=== PATIENT | male | born 1960 | race Caucasian/White ===

== ENCOUNTER 2016-12-07 10:05 | Observation (INO) | payer SELFPAY ==
[~2016-12-07] VITALS: Ht 195.6 cm; Wt 148.5 kg
[2016-12-07 11:12] LABS: MCH 17.4 PG (29.0-34.0); MCHC 27.3 G/DL (30.0-36.0); MCV 63.8 FL (86-99); MEAN PLAT.VOLUME 8.7 uM^3 (9.0-12.4); PLATELET COUNT 382 K/uL (156-360); RBC DIS.WIDTH-CV 18.9 % (11.8-14.6); RBC DIS.WIDTH-SD 42.7 % (39-53); WHITE BLOOD COUNT 5.7 K/uL (4.1-10.2)
[2016-12-07 11:18] LABS: CHLORIDE 111 mEq/L (99-109); POTASSIUM 4.2 mEq/L (3.7-5.4); SODIUM 141 mEq/L (136-147)
[2016-12-07 11:19] LABS: GLUCOSE 86 mg/dL (70-99)
[2016-12-07 11:21] LABS: ANION GAP 5 MEQ/L (2-14)
[2016-12-07 11:23] LABS: GFR ESTIMATE (CALCULATED) > 59 mL/min/
[2016-12-07 11:24] LABS: UREA NITROGEN (BUN) 14 mg/dL (9-23)
[2016-12-07 11:26] LABS: TROP-I INTERPRETATION NEGATIVE; TROPONIN-I < 0.01 ng/mL (0.0-0.30)
[2016-12-07] MEDS ORDERED: AMLODIPINE BESY10 MG PO (12:43)
[2016-12-07] MEDS ORDERED: HYDROCODON-ACE1 EA11 PO (12:44)
[2016-12-07] MEDS ORDERED: TRAMADOL HCL50 MG PO (12:44)
[2016-12-07] MEDS ORDERED: CYCLOBENZAPRINE10 MG PO (12:45)
[2016-12-07] MEDS ORDERED: ASPIRIN EC325 MG PO (12:45)
[2016-12-07] MEDS ORDERED: [UNRECOGNIZED DRUG - OTHER] PO (12:47)
[2016-12-07] MEDS ORDERED: TYLENOL PM1 CAPLET PO (12:50)
[2016-12-07 14:28] LABS: IRON 18 MCG/DL (35-150)
[2016-12-07 14:29] VITALS: BP 130/72
[2016-12-07 18:12] LABS: TROP-I INTERPRETATION NEGATIVE; TROPONIN-I < 0.01 ng/mL (0.0-0.30)
[2016-12-07 19:30] VITALS: BP 124/70
[2016-12-07 20:23] VITALS: BP 128/84
[2016-12-07 20:40] VITALS: BP 146/86
[2016-12-07 21:40] VITALS: BP 150/77
[2016-12-07 23:08] VITALS: BP 146/81
[2016-12-08 01:03] LABS: TROP-I INTERPRETATION NEGATIVE; TROPONIN-I < 0.01 ng/mL (0.0-0.30)
[2016-12-08 04:15] VITALS: BP 122/74
[2016-12-08 07:21] VITALS: BP 141/83
[2016-12-08] MEDS ORDERED: FERROUS SULFAT325 MG PO (09:38)
[2016-12-08] MEDS ORDERED: CYANOCOBAL1000 MCG/2 IM (09:44)
== END 2016-12-08 10:16 | disposition home or self-care (01) ==
LOC: EME 10:05 → 5WEST 12:34 → EDOF 12:34 → 5WEST 14:08
PROVIDERS: Emergency Medicine; Hospitalist
DX: R07.9 Chest pain, unspecified (principal); D50.9 Iron deficiency anemia, unspecified; E53.8 Deficiency of other specified B group vitamins; I10 Essential (primary) hypertension; M19.90 Unspecified osteoarthritis, unspecified site; Z79.82 Long term (current) use of aspirin; F17.220 Nicotine dependence, chewing tobacco, uncomplicated; E66.9 Obesity, unspecified; Z98.84 Bariatric surgery status; I25.10 Atherosclerotic heart disease of native coronary artery without angina pectoris; Z68.38 Body mass index [BMI] 38.0-38.9, adult
CPT/HCPCS: 71010; 80048; 80061; 82272; 82607; 82746; 83540; 84466; 84484; 85027; 86900; 86901; 86920; 93005; 99281; 99285; G0378; J3420; P9016

== ENCOUNTER 2017-11-20 03:06 | Emergency (ER) | payer SELFPAY ==
[~2017-11-20] VITALS: Ht 185.4 cm; Wt 136.5 kg
[~2017-11-20 03:06] MED LIST: AMLODIPINE BESY10 MG PO; ASPIRIN EC325 MG PO; CYANOCOBAL1000 MCG/2 IM; CYCLOBENZAPRINE10 MG PO; FERROUS SULFAT325 MG PO; HYDROCODON-ACE1 EA11 PO; TRAMADOL HCL50 MG PO; TYLENOL PM1 CAPLET PO; [UNRECOGNIZED DRUG - OTHER] PO
[2017-11-20] MEDS ORDERED: NORCO 10/3251 TABLET PO (03:47)
[2017-11-20 04:14] VITALS: BP 150/97
== END 2017-11-20 04:15 | disposition home or self-care (01) ==
LOC: EME 03:06
DX: M10.9 Gout, unspecified (principal); F17.200 Nicotine dependence, unspecified, uncomplicated
CPT/HCPCS: 99281; 99284; J1100